=== PATIENT | female | born 1955 | race Caucasian/White ===

== ENCOUNTER 2017-10-23 03:15 | Observation (INO) | payer BC, OTHER ==
[~2017-10-23] VITALS: Ht 157.5 cm; Wt 75.0 kg
[2017-10-23] VITALS (9 sets, daily range): BP systolic 97–150; BP diastolic 58–73; PULSE 57–69; TEMP 36.3–37.1; O2SAT 95–98; Ht 157.5 cm; Wt 75.0 kg
[~2017-10-23 03:15] MED LIST: ACET-1257 PO; ASPI-320 PO; CALC500C70 PO; CHOL2000 PO; CLB200 PO; DTRSR4 PO; PRT/20 PO; RXC5 PO; SERT1TAB71 PO
[2017-10-23] MEDS ORDERED: KETOROLAC TROMETHAMINE 30 MG/ML VIAL IV STA (03:45)
[2017-10-23] MEDS ORDERED: SODIUM CHLORIDE 0.9% 1000ML 1,000 ML IV ONE (03:45)
[2017-10-23] MEDS ORDERED: ONDANSETRON INJ 2 MG/ML 2 ML VIAL IV STA (03:45)
[2017-10-23] MEDS ORDERED: ASPI1TAB48 PO (04:00)
[2017-10-23] MEDS ORDERED: MoRPHine SULFATE 4 MG/ML 1 ML CARP\\VIAL IV ONE (04:15)
[2017-10-23 04:48] LABS: BASO % 0.1 %; BASO ABS # 0.01 K/uL (0-0.2); EOS ABS # 0.09 K/uL (0-0.5); HEMATOCRIT 35.8 % (37-47); HEMOGLOBIN 11.9 g/dL (12.0-16.0); IG# 0.02 K/uL (0.00-0.02); LYMPH % 17.8 %; LYMPH ABS # 1.62 K/uL (1.2-3.4); MEAN CELL VOLUME 89.1 fL (80-100); MEAN CORPUSCULAR HEMOGLOBIN 29.6 pg (25-34); MEAN CORPUSCULAR HGB CONC 33.2 g/dl (32-36); MEAN PLATELET VOLUME 8.5 fL (7.4-10.4); MONO % 7.4 %; MONO ABS # 0.67 K/uL (0.11-0.59); NEUT % 73.5 %; NEUT ABS # 6.68 K/uL (1.4-6.5); PLATELET COUNT 206 K/uL (130-400); RED CELL DISTRIBUTION WIDTH CV 13.6 % (11.5-14.5); RED CELL DISTRIBUTION WIDTH SD 44.5 fL (36.4-46.3); WHITE BLOOD COUNT 9.09 K/uL (4.8-10.8)
[2017-10-23 05:04] LABS: ALBUMIN 3.6 gm/dl (3.4-5.0); CALCIUM 8.5 mg/dl (8.5-10.1); CREATININE 1.22 mg/dl (0.60-1.20); POTASSIUM 4.2 mmol/L (3.5-5.1); TOTAL PROTEIN 6.9 gm/dl (6.4-8.2)
[2017-10-23] MEDS ORDERED: TAMSULOSIN HCL 0.4 MG CAP PO STA (06:12)
[2017-10-23] MEDS ORDERED: IV FLUIDS COMPLETED PRN (06:30)
[2017-10-23] MEDS ORDERED: HYDROmorphone INJ 0.5 MG/0.5 ML SYR IV PRN (06:45)
[2017-10-23] MEDS ORDERED: ACETAMINOPHEN 325 MG TAB PO PRN (06:45)
[2017-10-23] MEDS ORDERED: PROCHLORPERAZINE INJ 5 MG in SYRINGE 4 ML IV PRN (06:45)
[2017-10-23] MEDS ORDERED: TRAMADOL HCL 50 MG TAB PO PRN (06:45)
--- NOTE | 2017-10-23 06:54 | DIAGNOSTIC IMAGING REPORT ---
(MARY/BLAD)RETROPERITON COMP HISTORY: Flank pain Reported right side ureteral stone/right flank pain COMPARISON: None. FINDINGS: Right kidney: Maximum dimension 11.7 cm. Hydronephrosis is present. Normal corticomedullary differentiation and cortical thickness. Left kidney: Maximum dimension 10.8 cm. No evidence for hydronephrosis. 6 mm cyst. Normal corticomedullary differentiation and cortical thickness. Bladder: No bladder wall thickening. The bilateral ureteral jets were identified. IMPRESSION: 1. Right renal hydronephrosis. The above report was generated using voice recognition software. It may contain grammatical, syntax or spelling errors. Electronically signed by: French Montalvo M.D. 10/23/2017 6:53 AM Dictated Date/Time: 10/23/2017 6:52 AM
--- NOTE | 2017-10-23 06:55 | DIAGNOSTIC IMAGING REPORT ---
KUB CLINICAL HISTORY: reported right ureteral stone COMPARISON STUDY: No previous studies for comparison. FINDINGS: 5 mm calcification adjacent to the right transverse process of L3. This potentially is ureteral. Nonobstructive bowel pattern. Several pelvic vascular calcifications. IMPRESSION: Potential 5 mm calcification right ureter adjacent to the right transverse process of L3. The above report was generated using voice recognition software. It may contain grammatical, syntax or spelling errors. Electronically signed by: French Montalvo M.D. 10/23/2017 6:54 AM Dictated Date/Time: 10/23/2017 6:53 AM
--- NOTE | 2017-10-23 07:49 | HISTORY & PHYSICAL EXAMINATION ---
DATE OF ADMISSION: 10/23/2017 PRIMARY CARE DOCTOR: Dr. Stewart. CHIEF COMPLAINT: Right flank pain. HISTORY OF PRESENT ILLNESS: History is obtained from patient and records. Medical history is significant for mood disorder, reflux, kidney stones. Recent confinement under Orthopedic service last January 2016 for right hip surgery. Two days ago, patient noted right flank pain, achy, similar to kidney stone pain with nausea, no fever, no chills. No hematuria. Seen at [facility] ER. CAT scan showed kidney stones bilateral as per patient, more on the right with possible blockage. Sent home on pain medicine and Flomax. Symptoms resolved sans stones noted on voided urine at home. This morning, patient had recurrence of right flank pain with nausea, emesis. No fever, no chills. MEDICAL HISTORY: As above. OPERATIONS: She has had a right hip surgery, breast biopsy, dental surgery, urologic procedures . HOME MEDICATIONS: Include vitamin D3, Os-Deny, Protonix, Zoloft, Detrol. ALLERGIES: No known drug allergies. FAMILY HISTORY: There is a family history of kidney stones. PERSONAL AND SOCIAL HISTORY: Nonsmoker, no chronic intake of alcohol. Retired hospital social worker. REVIEW OF SYSTEMS: As per HPI, all 10 systems reviewed. All other ROS negative. PHYSICAL EXAMINATION: VITAL SIGNS: Blood pressure was noted to be 144/85, later 130/58, pulse rate 71, RR 20, T 37 O2 sats 92 on room air. GENERAL: Noted to be pleasant, comfortable, obese, no respiratory distress. SKIN: Pallor, warm. HEENT: Bespectacled. Pale palpebral conjunctivae. No ptosis. Dry buccal mucosa. NECK: Supple, nontender. CHEST: Clear to auscultation. No tenderness. HEART: Regular rate and rhythm, no murmur. ABDOMEN: Soft with minimal right flank tenderness. EXTREMITIES: No LE tenderness, LE edema. No gross deformities. NEUROLOGIC: Coherent. No gross focality. LABORATORY DATA: Hemoglobin 11.9, hematocrit 35.8, white blood cells 9, platelets noted to be 206. Sodium 136, potassium 4.2, chloride noted to be 108, CO2 24, BUN 22, creatinine 1.22, glucose was noted to be 94. UA, trace occult blood, epithelial cells 5-10. Renal ultrasound initial read moderate hydronephrosis R KUB x-ray as per my interpretation calcification right mid ureter. ASSESSMENT: 1. Right renal colic colic secondary to obstructive uropathy Recurrent symptoms history urolithiasis No sepsis 2. ARF secondary to above 3. anemia. PLAN: Observation GMF Analgesia Continue Flomax until seen by Urology. (ER provider already in touch with Dr. Aceves.) Monitor creatinine response to IV fluids. Anemia workup DVT prophylaxis SCDs for now until occult GI bleed a CT of anemia ruled out Full code. MTDD
[2017-10-23] MEDS: SODIUM CHLORIDE 0.9% 1000ML 1,000 ML IV SCH ×2 (07:50→12:44)
[2017-10-23] MEDS ORDERED: PANTOprazole SOD 40 MG TAB PO SCH (09:00)
[2017-10-23] MEDS ORDERED: TOLTERODINE TARTRATE LA 4 MG CAPCR PO SCH (09:00)
[2017-10-23] MEDS ORDERED: SERTRALINE HCL 50 MG TAB PO SCH (09:00)
[2017-10-23] MEDS ORDERED: MIDAZOLAM HCL 1 MG/ML 2ML VIAL ONE (10:41)
[2017-10-23] MEDS ORDERED: PROPOFOL IV EMULSION 10 MG/ML 20 ML VIAL ONE ×2 (10:41→11:53)
[2017-10-23] MEDS ORDERED: LIDOCAINE HCL 2% 2 ML VIAL (20MG/ML) ONE (10:41)
[2017-10-23] MEDS ORDERED: FENTANYL CITRATE INJ 50 MCG/1 ML 2 ML VIAL ONE (10:41)
--- NOTE | 2017-10-23 10:47 | Urology Consultation ---
History General Date of Service: Oct 23, 2017. Primary Care Physician: Baron Stewart D.O. Pt seen a urologist before?: Yes History of Present Illness 61 y/o female with history of stones in 2009. She presented to [facility] Tuesday with r flank pain and had a CT that showed a proximal r upj stone and stone visible on kub and hydro on sonogram here. Pt without fever . Urine clear . Discussed options . Plan stent today and eswl tuesday Imaging Imaging: KUB, Ultrasound Laboratory Labs were reviewed and are within normal limits unless listed below. Labs are available in the chart and at [facility] Past History depression Additional Comments: brest biopsy dental surgery ureteroscopy r hip replacement Social History Hx Tobacco Use In Past Year?: No Allergies Coded Allergies: No Known Allergies (Unverified , 10/23/17) Medications Home Medications: Home Meds and Scripts Medications Dose Route/Sig Max Daily Dose Days Date Category Tylenol Extra Strength (Acetaminophen) 500 Mg Tab 1,000 Mg PO Q8 PRN 01/31/16 Rx Detrol LA (Tolterodine Tartrate) 4 Mg Capcr 4 Mg PO QAM 12/26/15 Reported Os-Deny 500 Plus D (Calcium/Vitamin D) Tab 1 Tab PO QAM 12/26/15 Reported Vitamin D3 (Cholecalciferol) 2,000 Unit Cap 1 Cap PO BID 12/26/15 Reported Protonix (Pantoprazole Sodium) 20 Mg Tab 20 Mg PO QAM 12/26/15 Reported Zoloft (Sertraline Hcl) 50 Mg Tab 50 Mg PO QAM 12/26/15 Reported Inpatient Medications: Current Inpatient Medications Medications (Trade) Dose Ordered Sig/Jung Route Start Time Stop Time Status Last Admin Dose Admin Tamsulosin HCl (Flomax Cap) 0.4 mg QAM PO 10/24/17 09:00 11/23/17 08:59 Miscellaneous (Iv Fluids Completed) 1 ea PRN PRN N/A 10/23/17 06:30 10/23/18 06:29 Acetaminophen (Tylenol Tab) 650 mg Q4H PRN PO 10/23/17 06:45 11/22/17 06:44 Prochlorperazine Edisylate 5 mg/ Syringe 5 ml @ 5 mls/min Q6H PRN IV 10/23/17 06:45 11/22/17 06:44 Hydromorphone HCl (Dilaudid Inj) 0.5 mg Q3H PRN IV 10/23/17 06:45 11/06/17 06:44 Tramadol HCl (Ultram Tab) not relieved by tylenol @ Q6H PRN PO 10/23/17 06:45 11/22/17 06:44 Sodium Chloride 1,000 ml @ 150 mls/hr Q6H40M IV 10/23/17 07:30 11/22/17 07:29 10/23/17 07:50 150 MLS/HR Sertraline HCl (Zoloft Tab) 50 mg QAM PO 10/23/17 09:00 11/22/17 08:59 10/23/17 09:15 50 MG Tolterodine Tartrate (Detrol LA Cap) 4 mg QAM PO 10/23/17 09:00 11/22/17 08:59 10/23/17 09:16 4 MG Pantoprazole Sodium (Protonix Tab) 40 mg QAM PO 10/23/17 09:00 11/22/17 08:59 10/23/17 09:16 40 MG Review of Systems Review of Systems Additional Comments: see admission ROS Physical Exam Vital Signs: Vital Signs Past 12 Hours Date Time Temp Pulse Resp B/P (MAP) Pulse Ox O2 Delivery O2 Flow Rate FiO2 10/23/17 07:55 Room Air 10/23/17 07:14 36.5 67 16 150/73 (98) 97 Room Air 10/23/17 06:49 67 18 119/64 95 Room Air 10/23/17 06:45 95 Room Air 10/23/17 05:45 71 20 113/58 92 Room Air 10/23/17 03:19 36.5 83 20 144/85 100 Room Air Physical Exam: General Appearance: + mild distress Eyes: bilateral eyes normal inspection ENT: normal ENT inspection Neck: supple Respiratory/Chest: chest non-tender, normal breath sounds, no respiratory distress, no accessory muscle use Cardiovascular: regular rate, rhythm, no edema Gastrointestinal: Abdomen: RLQ tenderness Bladder: normal bladder Extremities: no pedal edema, no calf tenderness Neurologic/Psychiatric: communications programmer II-XII nml as tested, alert Skin: normal color, warm/dry, no rash Lymphatic: no adenopathy Assessment & Plan Assessment & Plan Discussed options and given she returns less than 24 hours with 6 mm r upj stone will place stent today and plan eswl Tuesday.Discussed risks and options and she agree to proceed
[2017-10-23] MEDS ORDERED: Cysto-Conray II 17.2% 250ML BOTTLE ONE (11:04)
--- NOTE | 2017-10-23 11:36 | Progress Note ---
Medicine Progress Note Date & Time of Visit: Oct 23, 2017 at 10:50. Subjective Pt was seen and examined Sitting in bed comfortable talking to over the phone Pt said that she does not have any pain currently She said that she feels fine Denies any hematuria, dysuria, palpitation, chest pain and SOB Objective Last 8 Hrs Date Time Temp Pulse Resp B/P (MAP) Pulse Ox O2 Delivery O2 Flow Rate FiO2 10/23/17 07:55 Room Air 10/23/17 07:14 36.5 67 16 150/73 (98) 97 Room Air 10/23/17 06:49 67 18 119/64 95 Room Air 10/23/17 06:45 95 Room Air 10/23/17 05:45 71 20 113/58 92 Room Air 10/23/17 03:19 36.5 83 20 144/85 100 Room Air Physical Exam: General- No acute distress Head- atraumatic Eyes- PERRL, EOMI ENT- oropharynx clear Neck- supple, no JVD Lungs- clear to auscultation Heart- regular rhythm; no murmur Abdomen- normal bowel sounds, soft Extremities-no calf tenderness Neuro- alert, oriented x 3, PERRL, EOMI, no facial palsy Skin- warm & dry Laboratory Results: Last 24 Hours Test 10/23/17 04:22 10/23/17 04:35 White Blood Count 9.09 K/uL Red Blood Count 4.02 M/uL Hemoglobin 11.9 g/dL Hematocrit 35.8 % Mean Corpuscular Volume 89.1 fL Mean Corpuscular Hemoglobin 29.6 pg Mean Corpuscular Hemoglobin Concent 33.2 g/dl Platelet Count 206 K/uL Mean Platelet Volume 8.5 fL Neutrophils (%) (Auto) 73.5 % Lymphocytes (%) (Auto) 17.8 % Monocytes (%) (Auto) 7.4 % Eosinophils (%) (Auto) 1.0 % Basophils (%) (Auto) 0.1 % Neutrophils # (Auto) 6.68 K/uL Lymphocytes # (Auto) 1.62 K/uL Monocytes # (Auto) 0.67 K/uL Eosinophils # (Auto) 0.09 K/uL Basophils # (Auto) 0.01 K/uL RDW Standard Deviation 44.5 fL RDW Coefficient of Variation 13.6 % Immature Granulocyte % (Auto) 0.2 % Immature Granulocyte # (Auto) 0.02 K/uL Sodium Level 139 mmol/L Potassium Level 4.2 mmol/L Chloride Level 108 mmol/L Carbon Dioxide Level 24 mmol/L Anion Gap 7.0 mmol/L Blood Urea Nitrogen 22 mg/dl Creatinine 1.22 mg/dl Est Creatinine Clear Calc Drug Dose 44.8 ml/min Estimated GFR () 54.6 Estimated GFR (Non- 47.1 BUN/Creatinine Ratio 18.0 Random Glucose 94 mg/dl Calcium Level 8.5 mg/dl Total Bilirubin 0.6 mg/dl Aspartate Amino Transf (AST/SGOT) 21 U/L Alanine Aminotransferase (ALT/SGPT) 28 U/L Alkaline Phosphatase 86 U/L Total Protein 6.9 gm/dl Albumin 3.6 gm/dl Globulin 3.3 gm/dl Albumin/Globulin Ratio 1.1 Lipase 144 U/L Urine Color YELLOW Urine Appearance CLEAR Urine pH 8.0 Urine Specific [place] 1.014 Urine Protein NEG Urine Glucose (UA) NEG Urine Ketones NEG Urine Occult Blood TRACE Urine Nitrite NEG Urine Bilirubin NEG Urine Urobilinogen NEG Urine Leukocyte Esterase NEG Urine WBC (Auto) 1-5 /hpf Urine RBC (Auto) 0-4 /hpf Urine Hyaline Casts (Auto) 0 /lpf Urine Epithelial Cells (Auto) 5-10 /lpf Urine Bacteria (Auto) NEG Urine Opiates Screen POS Urine Methadone, Qualitative NEG Urine Barbiturates NEG Urine Phencyclidine (PCP) Level NEG Ur Amphetamine/Methamphetamine NEG MDMA (Ecstasy) Screen NEG Urine Benzodiazepines Screen NEG Urine Cocaine Metabolite NEG Urine Marijuana (THC) NEG Assessment & Plan Right Ureteral Calculi Right Sided Hydronephrosis Present with right flank pain radiated to her right groin area. KUB showed potential 5 mm calcification Renal U/S showed right renal hydronephrosis. Pain controls Continue IVF and Flomax Urology on board Case discussed with Dr. Aceves that plan to take pt to OR for stent placement If stable after the procedure, will consider to discharge home later Will discharge on Flomax, pain med and Macrobid x7 days She will need to follow up with urology on Tuesday for lithotripsy Keep NPO RAMON Last creatine was dated back in 01/2016 was 0.83 Creatine on admission 1.22 Received IVF Will need to monitor BMP Anemia Hgb back in 02/03 was 10.4 Hgb on admission 11.9 Will need outpatient work up. DVT px on SCDs CODE status Full Code Current Inpatient Medications: Current Inpatient Medications Medications (Trade) Dose Ordered Sig/Jung Route Start Time Stop Time Status Last Admin Dose Admin Tamsulosin HCl (Flomax Cap) 0.4 mg QAM PO 10/24/17 09:00 11/23/17 08:59 Miscellaneous (Iv Fluids Completed) 1 ea PRN PRN N/A 10/23/17 06:30 10/23/18 06:29 Acetaminophen (Tylenol Tab) 650 mg Q4H PRN PO 10/23/17 06:45 11/22/17 06:44 Prochlorperazine Edisylate 5 mg/ Syringe 5 ml @ 5 mls/min Q6H PRN IV 10/23/17 06:45 11/22/17 06:44 Hydromorphone HCl (Dilaudid Inj) 0.5 mg Q3H PRN IV 10/23/17 06:45 11/06/17 06:44 Tramadol HCl (Ultram Tab) not relieved by tylenol @ Q6H PRN PO 10/23/17 06:45 11/22/17 06:44 Sodium Chloride 1,000 ml @ 150 mls/hr Q6H40M IV 10/23/17 07:30 11/22/17 07:29 10/23/17 07:50 150 MLS/HR Sertraline HCl (Zoloft Tab) 50 mg QAM PO 10/23/17 09:00 11/22/17 08:59 10/23/17 09:15 50 MG Tolterodine Tartrate (Detrol LA Cap) 4 mg QAM PO 10/23/17 09:00 11/22/17 08:59 10/23/17 09:16 4 MG Pantoprazole Sodium (Protonix Tab) 40 mg QAM PO 10/23/17 09:00 11/22/17 08:59 10/23/17 09:16 40 MG
[2017-10-23] MEDS ORDERED: ATROPINE SULFATE 0.1 MG/ML 5ML SYR IV PRN (11:45)
[2017-10-23] MEDS ORDERED: FENTANYL CITRATE INJ 50 MCG/1 ML 2 ML VIAL IV PRN (11:45)
[2017-10-23] MEDS ORDERED: EpHEDrine SULFATE INJ 50 MG/ML AMP IV PRN (11:45)
[2017-10-23] MEDS ORDERED: ONDANSETRON INJ 2 MG/ML 2 ML VIAL IV PRN (11:45)
--- NOTE | 2017-10-23 11:58 | [facility] Post Operative Brief Note ---
Immediate Operative Summary Operative Date Oct 23, 2017. Pre-Operative Diagnosis Right Ureteropelvic Junction Stone Post-Operative Diagnosis Same as preoperative Procedure(s) Performed Cystoscopy, Right Ureteral Stent Insertion Surgeon Dr. Aceves Broom Maker Surgeon(s) none Estimated Blood Loss 0ml Findings Consistent with Post-Op Diagnosis Specimens None Drains 4.8 by 24 cm stent Anesthesia Type MAC Complication(s) none
[2017-10-23] MEDS ORDERED: ACETAMINOPHEN 500 MG TAB PO PRN (12:00)
--- NOTE | 2017-10-23 12:12 | Anesthesiology Progress Note ---
Anesthesia Post Op Note Date & Time Oct 23, 2017 at 12:12 Vital Signs Pain Intensity: 0.0 Vital Signs Past 12 Hours Date Time Temp Pulse Resp B/P (MAP) Pulse Ox O2 Delivery O2 Flow Rate FiO2 10/23/17 07:55 Room Air 10/23/17 07:14 36.5 67 16 150/73 (98) 97 Room Air 10/23/17 06:49 67 18 119/64 95 Room Air 10/23/17 06:45 95 Room Air 10/23/17 05:45 71 20 113/58 92 Room Air 10/23/17 03:19 36.5 83 20 144/85 100 Room Air Notes Mental Status: alert / awake / arousable, participated in evaluation Pt Amnestic to Procedure: Yes Nausea / Vomiting: adequately controlled Pain: adequately controlled Airway Patency, RR, SpO2: stable & adequate BP & HR: stable & adequate Hydration State: stable & adequate Anesthetic Complications: no major complications apparent
--- NOTE | 2017-10-23 12:51 | DIAGNOSTIC IMAGING REPORT ---
RETROGRADE INCLUDES KUB CLINICAL HISTORY: RIGHT RETROGRADE AND STENT PLACEMENT TECHNIQUE: Image intensifier. 27 seconds fluoroscopy time. 2 images acquired. COMPARISON STUDY: 10/23/2017 FINDINGS: Successful placement of a right ureteral stent. IMPRESSION: Successful placement of a right ureteral stent. The above report was generated using voice recognition software. It may contain grammatical, syntax or spelling errors. Electronically signed by: French Montalvo M.D. 10/23/2017 12:50 PM Dictated Date/Time: 10/23/2017 12:49 PM
--- NOTE | 2017-10-23 13:56 | OPERATIVE REPORT ---
DATE OF OPERATION: 10/23/2017 PROCEDURE PERFORMED: Cystoscopy and right stent placement. PREOPERATIVE DIAGNOSIS: Right ureteropelvic junction stone. POSTOPERATIVE DIAGNOSIS: Right ureteropelvic junction stone. SURGEON: Dr. Aceves. INDICATIONS: The patient is a 61-year-old female who presented on Tuesday to [facility] with right flank pain and a CAT scan that showed a 6-7 mm proximal right ureteral stone. She was discharged to home, but came back the following day to our Emergency Room with the same complaint, had hydro on a sonogram and a KUB that showed a 6-7 mm proximal stone on the right side. The patient's pain was somewhat less this morning but ongoing, we elected to place a stent in preparation for ESWL next Tuesday. DESCRIPTION OF THE PROCEDURE: The patient is taken to the operating room. She had Venodyne stockings placed. She was given Kefzol preoperatively. She was placed in dorsal lithotomy position, prepped and draped in the usual sterile fashion. A 22-[place] cystoscope was attempted to be placed, but there was some stenosis of the urethra so 21-[place] cystoscope was placed. The bladder was filled. There was a little bit of erythema at the bladder wall. No tumors were seen. The right ureteral orifice was cannulated using a deflecting bridge and a 5-[place] open-ended catheter and a retrograde was performed which confirmed right hydronephrosis. Did not see any kind of urine coming from the right ureteral orifice prior to placing a dual flex guidewire up into the renal pelvis under fluoroscopy. At that point there was a drip around the wire. I then placed a 4.8, 24-cm stent over this wire under fluoroscopy and confirmed its position in the renal pelvis given there was still remaining contrast there and a good curl was left in the bladder. The wire was removed, the bladder was emptied and the patient was transferred to the recovery room in stable condition. I attest to the content of the Intraoperative Record and any orders documented therein. Any exception s are noted below.
[2017-10-23] MEDS ORDERED: FLM4 PO (16:16)
[2017-10-23] MEDS ORDERED: NITR-5 PO (16:16)
--- NOTE | 2017-10-23 16:23 | Discharge Instructions ---
Discharge Instructions Date of Service Oct 23, 2017. Admission Reason for Admission: Renal Colic Discharge Discharge Diagnosis / Problem: Right Ureteral Calculi, Acute Kidney Failure Discharge Goals Goal(s): Decrease discomfort, Improve function, Improve disease control Activity Recommendations Activity Limitations: resume your previous activity (as tolerated) . Instructions / Follow-Up Instructions / Follow-Up Please call your primary care provider to schedule a follow up appointment within 1 week Follow up with urology Dr. Aceves on Tuesday for lithotripsy (Please call tomorrow to schedule for the appointment) Check BMP to monitor renal function Advised pt to keep herself hydrate Continue the course of antibiotic Current Hospital Diet Patient's current hospital diet: Regular Diet Discharge Diet Recommended Diet: Regular Diet Procedures Procedures Performed: Cystoscopy, Right Ureteral Stent Insertion Pending Studies Studies pending at discharge: no Medical Emergencies . Who to Call and When: Medical Emergencies: If at any time you feel your situation is an emergency, please call 911 immediately. . Non-Emergent Contact Non-Emergency issues call your: Primary Care Provider Call Non-Emergent contact if: temperature is above 101, your pain is not controlled, your pain is worsening . . "Provider Documentation" section prepared by Juliet Beyer. .
[2017-10-23] MEDS ORDERED: CHOLECALCIFEROL 1000 INTER.UNIT TAB PO SCH (21:00)
--- NOTE | 2017-10-23 21:36 | EMERGENCY ROOM VISIT NOTE ---
History First contact with patient: 03:45 Chief Complaint: KIDNEY STONE Stated Complaint: RENAL COLIC History of Present Illness The patient is a 61 year old female who presents to the Emergency Room with complaints of right-sided flank pain that began about 2 hours prior to arrival. The patient states that she was seen and evaluated at [facility] [address] scan showed a 7 mm ureteral calculi. The patient states that she has had kidney stones in the past and has required urology intervention. The patient was discharged from [facility] with Vicodin and Zofran , which she took tonight, without any relief of symptoms. The patient states that [facility] does not have inpatient urology services, and thus came to this department for further management. She has not had fever or chills. She did have one episode of emesis tonight. She has been making urine and does not report gross hematuria. She rates her discomfort a colicky 9/10 at the worst and 5/10 at baseline. Review of Systems More than 10 systems were reviewed and otherwise negative with the exception of history of present illness. Past Medical/Surgical History Medical Problems: (1) Degenerative joint disease (DJD) of hip (2) Renal colic Family History No pertinent family history Social History Smoking Status: Never Smoker Housing Status: lives with family Current/Historical Medications Scheduled Calcium/Vitamin D (Os-Deny 500 Plus D), 1 TAB PO QAM Cholecalciferol (Vitamin D3), 1 CAP PO BID Nitrofurantoin Monohyd Macrocr (Macrobid), 100 MG PO BID Pantoprazole (Protonix), 20 MG PO QAM Sertraline Hcl (Zoloft), 50 MG PO QAM Tamsulosin HCl (Tamsulosin HCl), 0.4 MG PO QAM Tolterodine Tartrate (Detrol LA), 4 MG PO QAM Scheduled PRN Acetaminophen (Tylenol Extra Strength), 1,000 MG PO Q8 PRN for Pain Physical Exam Vital Signs Date Time Temp Pulse Resp B/P (MAP) Pulse Ox O2 Delivery O2 Flow Rate FiO2 10/23/17 05:45 71 20 113/58 92 Room Air 10/23/17 03:19 36.5 83 20 144/85 100 Room Air Physical Exam VITALS: Vitals are noted on the nurse's note and reviewed by myself. Vital signs stable. GENERAL: Well-developed, well-nourished, white female who appears quite uncomfortable on examination. HEART: Regular rate and rhythm without murmurs gallops or rubs. LUNGS: Clear to auscultation bilaterally without wheezes, rales or rhonchi. No retractions or accessory muscle use. ABDOMEN: Positive normal bowel sounds x 4. Soft, nontender, without masses or organomegaly. No guarding or rebound tenderness. No CVA tenderness. MUSCULOSKELETAL: No muscle atrophy, erythema, or edema noted. Full range of motion in all extremities. NEURO: Patient was alert and oriented to person place and time. CN II through XII grossly intact. Medical Decision & Procedures ER Provider Diagnostic Interpretation: MARY/BLAD)RETROPERITON COMP HISTORY: Flank pain Reported right side ureteral stone/right flank pain COMPARISON: None. FINDINGS: Right kidney: Maximum dimension 11.7 cm. Hydronephrosis is present. Normal corticomedullary differentiation and cortical thickness. Left kidney: Maximum dimension 10.8 cm. No evidence for hydronephrosis. 6 mm cyst. Normal corticomedullary differentiation and cortical thickness. Bladder: No bladder wall thickening. The bilateral ureteral jets were identified. IMPRESSION: 1. Right renal hydronephrosis. KUB CLINICAL HISTORY: reported right ureteral stone COMPARISON STUDY: No previous studies for comparison. FINDINGS: 5 mm calcification adjacent to the right transverse process of L3. This potentially is ureteral. Nonobstructive bowel pattern. Several pelvic vascular calcifications. IMPRESSION: Potential 5 mm calcification right ureter adjacent to the right transverse process of L3. Laboratory Results 10/23/17 04:22 Red Blood Count 4.02, Mean Corpuscular Volume 89.1, Mean Corpuscular Hemoglobin 29.6, Mean Corpuscular Hemoglobin Concent 33.2, Mean Platelet Volume 8.5, Neutrophils (%) (Auto) 73.5, Lymphocytes (%) (Auto) 17.8, Monocytes (%) (Auto) 7.4, Eosinophils (%) (Auto) 1.0, Basophils (%) (Auto) 0.1, Neutrophils # (Auto) 6.68, Lymphocytes # (Auto) 1.62, Monocytes # (Auto) 0.67, Eosinophils # (Auto) 0.09, Basophils # (Auto) 0.01 10/23/17 04:22 Test 10/23/17 04:22 10/23/17 04:35 White Blood Count 9.09 K/uL (4.8-10.8) Red Blood Count 4.02 M/uL (4.2-5.4) Hemoglobin 11.9 g/dL (12.0-16.0) Hematocrit 35.8 % (37-47) Mean Corpuscular Volume 89.1 fL (80-100) Mean Corpuscular Hemoglobin 29.6 pg (25-34) Mean Corpuscular Hemoglobin Concent 33.2 g/dl (32-36) Platelet Count 206 K/uL (130-400) Mean Platelet Volume 8.5 fL (7.4-10.4) Neutrophils (%) (Auto) 73.5 % Lymphocytes (%) (Auto) 17.8 % Monocytes (%) (Auto) 7.4 % Eosinophils (%) (Auto) 1.0 % Basophils (%) (Auto) 0.1 % Neutrophils # (Auto) 6.68 K/uL (1.4-6.5) Lymphocytes # (Auto) 1.62 K/uL (1.2-3.4) Monocytes # (Auto) 0.67 K/uL (0.11-0.59) Eosinophils # (Auto) 0.09 K/uL (0-0.5) Basophils # (Auto) 0.01 K/uL (0-0.2) RDW Standard Deviation 44.5 fL (36.4-46.3) RDW Coefficient of Variation 13.6 % (11.5-14.5) Immature Granulocyte % (Auto) 0.2 % Immature Granulocyte # (Auto) 0.02 K/uL (0.00-0.02) Anion Gap 7.0 mmol/L (3-11) Est Creatinine Clear Calc Drug Dose 44.8 ml/min Estimated GFR () 54.6 Estimated GFR (Non- 47.1 BUN/Creatinine Ratio 18.0 (10-20) Calcium Level 8.5 mg/dl (8.5-10.1) Total Bilirubin 0.6 mg/dl (0.2-1) Aspartate Amino Transf (AST/SGOT) 21 U/L (15-37) Alanine Aminotransferase (ALT/SGPT) 28 U/L (12-78) Alkaline Phosphatase 86 U/L (45-117) Total Protein 6.9 gm/dl (6.4-8.2) Albumin 3.6 gm/dl (3.4-5.0) Globulin 3.3 gm/dl (2.5-4.0) Albumin/Globulin Ratio 1.1 (0.9-2) Lipase 144 U/L (73-393) Urine Color YELLOW Urine Appearance CLEAR (CLEAR) Urine pH 8.0 (4.5-7.5) Urine Specific [place] 1.014 (1.000-1.030) Urine Protein NEG (NEG) Urine Glucose (UA) NEG (NEG) Urine Ketones NEG (NEG) Urine Occult Blood TRACE (NEG) Urine Nitrite NEG (NEG) Urine Bilirubin NEG (NEG) Urine Urobilinogen NEG (NEG) Urine Leukocyte Esterase NEG (NEG) Urine WBC (Auto) 1-5 /hpf (0-5) Urine RBC (Auto) 0-4 /hpf (0-4) Urine Hyaline Casts (Auto) 0 /lpf (0-5) Urine Epithelial Cells (Auto) 5-10 /lpf (0-5) Urine Bacteria (Auto) NEG (NEG) Urine Opiates Screen POS (NEG) Urine Methadone, Qualitative NEG (NEG) Urine Barbiturates NEG (NEG) Urine Phencyclidine (PCP) Level NEG (NEG) Ur Amphetamine/Methamphetamine NEG (NEG) MDMA (Ecstasy) Screen NEG (NEG) Urine Benzodiazepines Screen NEG (NEG) Urine Cocaine Metabolite NEG (NEG) Urine Marijuana (THC) NEG (NEG) Medications Administered Medications (Trade) Dose Ordered Sig/Jung Route Start Time Stop Time Status Last Admin Dose Admin Sodium Chloride 1,000 ml @ 999 mls/hr Q1H1M ONCE IV 10/23/17 03:45 10/23/17 04:45 DC 10/23/17 03:49 999 MLS/HR Ondansetron HCl (Zofran Inj) 4 mg NOW STAT IV 10/23/17 03:45 10/23/17 03:46 DC 10/23/17 03:49 4 MG Ketorolac Tromethamine (Toradol Inj) 30 mg NOW STAT IV 10/23/17 03:45 10/23/17 03:46 DC 10/23/17 03:49 30 MG Morphine Sulfate (MoRPHine SULFATE INJ) 4 mg NOW ONCE IV 10/23/17 04:15 10/23/17 04:16 DC 10/23/17 04:14 4 MG Tamsulosin HCl (Flomax Cap) 0.4 mg ONE STAT PO 10/23/17 06:12 10/23/17 06:13 DC 10/23/17 06:16 0.4 MG ED Course Physical exam and history were performed. Nursing notes, EMR, and Medication List were personally reviewed. Patient appears to have right flank pain bringing her to the emergency department tonight. I was able to get records from [facility], and based on her CT scan 2 days ago she did have a 7 maximal right ureteral stone. IV access was established and labs were obtained. The patient was hydrated and medicated as above. KUB and ultrasound were performed here. The patient's blood work is as above and was reviewed. She does not have a significantly elevated white blood cell count, gross anemia, bandemia, or significant electrolyte imbalance. Transaminases are not diagnostic. Urine is without obvious evidence of infection. Ultrasound does appear to show a right hydro-nephrosis. X-ray was reviewed by myself and radiology as showing what appears to be a right mid ureteral calculi which does correlate with the patient 's symptoms. I discussed options of care with the family, and overall the patient does not appear well for discharge home. I discussed the case with the on-call hospitalist as well as the on-call urologist. The hospitalist agreed to evaluate the patient here in the department. Please see their dictation for further patient course, plan, and disposition. The chart was completed utilizing [employer] Speech Voice Recognition Software. Grammatical errors, random word insertions, pronoun errors, and incomplete sentences are an occasional consequence of this system due to software limitations, ambient noise, and hardware issues. Any formal questions or concerns about the content, text, or information contained within the body of this dictation should be directly addressed to the provider for clarification. . Medical Decision Differential diagnosis: Etiologies such as renal colic, appendicitis, diverticulitis, mesenteric ischemia, aortic pathology, infections, inflammatory bowel disease, PUD, biliary pathology, UTI, as well as others were entertained. Impression Primary Impression: Right ureteral calculus Departure Information Dispostion Still a Patient Prescriptions Nitrofurantoin Monohyd Macrocr (Macrobid) 100 Mg Cap 100 MG PO BID for 5 Days, #10 CAP Prov: Juliet Beyer M.D. 10/23/17 Tamsulosin HCl (Tamsulosin HCl) 0.4 Mg Cap 0.4 MG PO QAM for 30 Days, #30 CAP Prov: Juliet Beyer M.D. 10/23/17 Referrals Baron Stewart D.O. (PCP) Forms HOME CARE DOCUMENTATION FORM, IMPORTANT VISIT INFORMATION Patient Instructions Formerly [facility], Later [facility]
[2017-10-24] MEDS ORDERED: CALCIUM 600MG + VIT D 400 IU TAB PO SCH (09:00)
[2017-10-24] MEDS ORDERED: TAMSULOSIN HCL 0.4 MG CAP PO SCH (09:00)
== END 2017-10-23 17:14 | disposition home or self-care (01) ==
LOC: C.EDB 03:17 → C.MSW 06:15 → ENRESERV 06:23
PROVIDERS: ADMIT Internal Medicine; ATTEND Internal Medicine
DX: N13.1 Hydronephrosis with ureteral stricture, not elsewhere classified (principal); N17.9 Acute kidney failure, unspecified; D64.9 Anemia, unspecified; K21.9 Gastro-esophageal reflux disease without esophagitis; F32.9 Major depressive disorder, single episode, unspecified; Z96.641 Presence of right artificial hip joint

== ENCOUNTER → 2017-10-26 | Outpatient (CLI) | payer OTHER ==
[~2017-10-26] MED LIST changes: -ASPI-320 PO; -CLB200 PO; +FLM4 PO; +NITR-5 PO; -RXC5 PO
--- NOTE | 2017-10-26 12:32 | DIAGNOSTIC IMAGING REPORT ---
CHEST 2 VIEWS ROUTINE CLINICAL HISTORY: 61 years-old Female presenting with N20.0 [id number]. TECHNIQUE: PA and lateral views of the chest were obtained. COMPARISON: 12/26/2015. FINDINGS: Cardiomediastinal silhouette normal. Lungs and pleural spaces clear. Osseous structures normal. Upper abdomen normal. IMPRESSION: 1. No acute cardiopulmonary disease. Electronically signed by: Андрей Elliott M.D. 10/26/2017 12:30 PM Dictated Date/Time: 10/26/2017 12:30 PM
== END | disposition home or self-care (01) ==
LOC: C.RAD 11:44
PROVIDERS: ATTEND Urology
DX: N20.0 Calculus of kidney (principal); N20.1 Calculus of ureter

== ENCOUNTER → 2017-11-03 | Outpatient (CLI) | payer OTHER ==
[~2017-11-03] MED LIST changes: -NITR-5 PO; +NITR1CAP16 PO
--- NOTE | 2017-11-03 15:59 | DIAGNOSTIC IMAGING REPORT ---
KUB CLINICAL HISTORY: URETERIC STONE nephrocalcinosis COMPARISON STUDY: 10/23/2017 FINDINGS: Interval placement of a right ureteral stent. The proximal right ureteral calculus previously described canals and lower pole right kidney. There is a 2.5 mm calcification lower pole left kidney. No additional calcifications are identified. Nonobstructive bowel pattern. Prior right hip total arthroplasty. IMPRESSION: 1. Interval placement of a right ureteral stent. 2. The proximal right ureteral calculus previously described is now located in the lower pole of the right kidney. The above report was generated using voice recognition software. It may contain grammatical, syntax or spelling errors. Electronically signed by: French Montalvo M.D. 11/03/2017 3:58 PM Dictated Date/Time: 11/03/2017 3:56 PM
== END | disposition home or self-care (01) ==
LOC: C.RAD 15:37
PROVIDERS: ATTEND Urology
DX: N20.1 Calculus of ureter (principal); N20.0 Calculus of kidney; Z96.0 Presence of urogenital implants

== ENCOUNTER → 2017-11-04 | Day surgery (SDC) | payer OTHER ==
[2017-10-27 13:08] VITALS: Ht 157.5 cm; Wt 75.0 kg
[~2017-11-04] VITALS: Ht 157.5 cm; Wt 75.0 kg
[~2017-11-04] MED LIST changes: +ACETAMINOPHEN 325 MG TAB PO PRN; +ATROPINE SULFATE 0.1 MG/ML 5ML SYR IV PRN; +CIPROFLOXACIN 400MG / D5W IV SCH; +DEXAMETHASONE SOD INJ 4 MG/ML VIAL ONE; +EpHEDrine SULFATE INJ 50 MG/ML AMP IV PRN; +EpHEDrine SULFATE INJ 50 MG/ML AMP ONE; +FENTANYL CITRATE INJ 50 MCG/1 ML 2 ML VIAL IV PRN; +FENTANYL CITRATE INJ 50 MCG/1 ML 2 ML VIAL ONE; +FLUMAZENIL 0.1 MG/1 ML 10 ML VIAL IV PRN; +LABETALOL HCL IV 5 MG/ML 20ML IV PRN; +LACTATED RINGER'S 1000ML 1,000 ML IV SCH; +LIDOCAINE HCL 2% 2 ML VIAL (20MG/ML) ONE; +MIDAZOLAM HCL 1 MG/ML 2ML VIAL ONE; +NALOXONE HCL 0.4 MG/1 ML VIAL/CARP IV PRN; +ONDANSETRON INJ 2 MG/ML 2 ML VIAL IV PRN; +ONDANSETRON INJ 2 MG/ML 2 ML VIAL ONE; +OXYCODONE/ACETAMINOPHEN 5-325 TAB PO PRN; +PROMETHAZINE HCL INJ 12.5 MG in SODIUM CHLORIDE 0.9% 50ML 50 ML IV PRN; +PROPOFOL IV EMULSION 10 MG/ML 20 ML VIAL ONE; +SODIUM CHLORIDE 0.9% 1000ML 1,000 ML IV SCH; +SODIUM CHLORIDE 0.9% INJ 10 ML VIAL ONE
--- NOTE | 2017-11-04 08:06 | History & Physical Bridge Note ---
H&P Re-Evaluation Bridge Note: I have examined the patient, reviewed the History & Physical and in the interval since the performance of the History & Physical I have noted the following changes of clinical significance: No changes noted
--- NOTE | 2017-11-04 08:56 | [facility] Operative Report ---
Operative Report Operative Date Nov 04, 2017. Pre-Operative Diagnosis Right Renal Calculi Post-Operative Diagnosis Same Procedure(s) Performed Right Extracorporeal Shock Wave Lithotripsy Surgeon Dr. Kevin Bernardo Sandblaster Supervisor Surgeon(s) None Estimated Blood Loss 0 Specimens None Drains None Anesthesia Type General Complication(s) none Disposition yes Recovery Room / PACU Description of Procedure The patient was identified in the preoperative holding area, appropriate informed consent was reviewed and completed and the patient was transported to the operating suite. Upon arrival appropriate preoperative antibiotics were administered and general anesthesia induced. The patient was placed in supine position and the stone was localized under fluoroscopy. A total of 2500 shocks were delivered to the stone. There appeared to be good fragmentation of the stone. Details of this procedure can be found on the [facility] information sheet. At the conclusion of the case the patient was extubated and taken to the PACU in stable condition. There were no complications. I attest to the content of the Intraoperative Record and any orders documented therein. Any exceptions are noted below.
--- NOTE | 2017-11-04 08:57 | Discharge Instructions ---
Discharge Instructions Date of Service Nov 04, 2017. Admission Reason for Admission: Stones Discharge Discharge Diagnosis / Problem: stones Discharge Goals Goal(s): Decrease discomfort, Improve function, Improve disease control, Prevent Disease Progression Activity Recommendations Activity Limitations: resume your previous activity Lifting Limitations: none Exercise/Sports Limitations: none May Resume Sexual Activity: when tolerated Shower/Bathe: no limitations Driving or Machine Use: resume 1 day after discharge . Instructions / Follow-Up Instructions / Follow-Up Please keep your previously scheduled follow up appointment Current Hospital Diet Patient's current hospital diet: Discharge Diet Recommended Diet: Regular Diet Procedures Procedures Performed: Right Extracorporeal Shock Wave Lithotripsy Pending Studies Studies pending at discharge: no Medical Emergencies . Who to Call and When: Medical Emergencies: If at any time you feel your situation is an emergency, please call 911 immediately. . Non-Emergent Contact Non-Emergency issues call your: Urologist Call Non-Emergent contact if: you have a fever, temperature is above 101.5, your pain is not controlled, your pain is worsening . . "Provider Documentation" section prepared by Galindo Vegas. .
--- NOTE | 2017-11-04 09:55 | Anesthesia Progress Nt - [facility] ---
Anesthesia Post Op Note Date & Time Nov 04, 2017 at 09:55 Vital Signs Pain Intensity: 0 Vital Signs Past 12 Hours Date Time Temp Pulse Resp B/P (MAP) Pulse Ox O2 Delivery O2 Flow Rate FiO2 11/04/17 09:53 80 18 11/04/17 09:53 81 18 11/04/17 09:51 138/69 11/04/17 09:48 79 13 95 11/04/17 09:48 80 13 11/04/17 09:46 141/68 11/04/17 09:43 83 19 95 11/04/17 09:43 85 19 11/04/17 09:41 129/69 11/04/17 09:38 33 11/04/17 09:38 95 33 11/04/17 09:36 133/70 11/04/17 09:33 77 16 100 11/04/17 09:33 77 16 11/04/17 09:31 137/69 11/04/17 09:28 78 14 100 11/04/17 09:28 78 14 11/04/17 09:27 79 10 11/04/17 09:27 79 10 100 11/04/17 09:26 141/76 11/04/17 09:24 36.3 97 12 147/72 99 Mask 5 11/04/17 09:23 147/72 11/04/17 07:03 36.8 70 16 128/77 (94) 97 Room Air Notes Mental Status: alert / awake / arousable, participated in evaluation Pt Amnestic to Procedure: Yes Nausea / Vomiting: adequately controlled Pain: adequately controlled Airway Patency, RR, SpO2: stable & adequate BP & HR: stable & adequate Hydration State: stable & adequate Anesthetic Complications: no major complications apparent
[2017-11-04 10:02] VITALS: TEMP 36.6
[2017-11-04 10:25] VITALS: BP 126/68; PULSE 75; O2SAT 98
== END | disposition home or self-care (01) ==
LOC: X.SURG 06:50
PROVIDERS: ATTEND Urology
DX: N20.0 Calculus of kidney (principal); N20.1 Calculus of ureter; K21.9 Gastro-esophageal reflux disease without esophagitis